=== PATIENT | female | born 1960 | race Caucasian/White ===

== ENCOUNTER 2017-06-19 22:48 | Emergency (ER) | payer OTHER ==
[2017-06-19 22:52] VITALS: BP 168/92; PULSE 61; RESP 16; TEMP 97.7; O2SAT 97
[2017-06-19] MEDS ORDERED: TDAP ADULT 0.5 ML INJ (BOOSTRIX) IM ONE (22:59)
--- NOTE | 2017-06-19 23:02 | EDPHY ---
H & P Stated Complaint: finger lac Time Seen by Provider: 06/19/17 22:59 HPI/ROS: HPI: This 57-year-old female who presents with Chief Complaint: Right index finger laceration Location: Right index and Quality: Laceration Duration: 2-3 hours prior to arrival Signs and Symptoms: + bleeding, no radiation, no numbness, no weakness, no tingling, no decreased range of motion, no swelling, + pain Timing: Acute Severity: [id number] Context: Patient is left-hand dominant, was carving pumpkins this evening and accidentally slipped and cut her right index finger. It started to bleed immediately with moderate constant pain. She applied a Band-Aid and direct pressure but bleeding continued over the next 2-3 hours. She is unsure of her last tetanus booster. Denies any paresthesias/decreased range of motion. Modifying Factors: direct pressure Comment: ROS: see HPI Constitutional: No fever, no chills, no weight loss Eyes: No blurred vision Respiratory: No shortness of breath, no cough Cardiovascular: No chest pain Gastrointestinal: No nausea, no vomiting no diarrhea Genitourinary: No dysuria Extremities: No myalgias Neurologic: No weakness, no numbness Skin: No rashes Hematologic: No bruising, no bleeding MEDICAL/SURGICAL/SOCIAL HISTORY: Medical history: Generally healthy. Does not take any regular medications. Surgical history: Denies Social history: Employed CONSTITUTIONAL: Anxious middle-aged white female, awake and alert, no obvious distress HEENT: Atraumatic and normocephalic, PERRL, EOMI. Tympanic membranes clear. Oropharynx clear, no exudate and moist pink mucosa. Airway patent. No lymphadenopathy. No meningismus. Cardiovascular: Normal S1/S2, regular rate, regular rhythm, without murmur rub or gallop. PULMONARY/CHEST: Symmetrical and nontender. Clear to auscultation bilaterally. Good air movement. No accessory muscle usage. ABDOMEN: Soft, nondistended, nontender, no rebound, no guarding, no peritoneal signs, no masses or organomegaly. No CVAT. EXTREMITIES: 2/2 pulses, strength 5/5, right index finger lateral aspect near nail fold 2 cm c-shaped laceration; DIP/PIP flexion/extension/light touch sensation intact. no deformities, no clubbing, no cyanosis or edema. NEUROLOGICAL: no focal neuro deficits. GCS 15. SKIN: Warm and dry, no erythema. no rash. Good capillary refill. Source: Patient Exam Limitations: No limitations - Personal History Current Tetanus/Diphtheria Vaccine: No Current Tetanus Diphtheria and Acellular Pertussis (TDAP): No - Medical/Surgical History Hx Asthma: No Hx Chronic Respiratory Disease: No Hx Diabetes: No Hx Cardiac Disease: No Hx Renal Disease: No Hx Cirrhosis: No Hx Alcoholism: No Hx HIV/AIDS: No Hx Splenectomy or Spleen Trauma: No - Social History Smoking Status: Never smoked Constitutional: Initial Vital Signs Temperature (C) 36.5 C 06/19/17 22:49 Heart Rate 61 06/19/17 22:49 Respiratory Rate 16 06/19/17 22:49 Blood Pressure 168/92 H 06/19/17 22:49 O2 Sat (%) 97 06/19/17 22:49 O2 Delivery Mode Room Air Allergies/Adverse Reactions: No Known Allergies Allergy (Unverified 06/19/17 22:51) Medical Decision Making Procedures: Procedure: Laceration repair. Verbal consent was obtained from the patient. The 2 cm C-shaped laceration on the tip of right index finger was anesthetized in the usual fashion digital block. The wound was irrigated, draped and explored to its base with a gloved finger. There were no deep structures involved. No tendon injury was identified. No foreign bodies were found. The wound was repaired with #5, 6-0 Prolene a simple interrupted pattern with good hemostasis. Patient tolerated procedure well. Xeroform, gauze and finger splint applied. The procedure was performed by myself. ED Course/Re-evaluation: Tetanus booster given Wound care and laceration repair provided No signs of neurovascular compromise/tenting of skin/compartment syndrome/ extremities and joints examined above and below area of concern and are neurovascularly intact. Xeroform, gauze applied Differential Diagnosis: Differential diagnosis includes but is not limited to laceration, tendon injury , nerve injury, contusion. - Data Points Medications Given: Discontinued Medications Diphtheria/Tetanus/Acell Pertussis (Boostrix) 0.5 ml IM .ONCE ONE Stop: 06/19/17 23:00 Last Admin: 06/19/17 23:13 Dose: 0.5 ml Departure - Departure Disposition: Home, Routine, Self-Care Clinical Impression: Laceration of right index finger Qualifiers: Encounter type: initial encounter Damage to nail status: without damage Foreign body presence: without foreign body Qualified Code(s): S61.210A - Laceration without foreign body of right index finger without damage to nail, initial encounter Condition: Good Instructions: Finger Laceration (ED) Additional Instructions: Keep the dressing in place for 48 hours. After 48 hours, you may remove the dressing; wash the site daily with mild soap and water; then pat dry. Take ibuprofen 600 mg every 6-8 hours with food as needed for pain and inflammation. Apply ice for 30 minutes at a time; 2-3 times per day for the next 1-2 days. Return in 7-10 days to the emergency room to have your sutures removed. Follow up with Orthopedics in 7-10 days if numbness, tingling, skin discoloration occurs. Referrals: Gómez Pires MD [Medical Doctor] - As per Instructions
== END 2017-06-19 23:42 | disposition home or self-care (01) ==
PROC: 0HQFXZZ Repair Right Hand Skin, External Approach (ICD-10-PCS; principal; 2017-06-19)
DX: S61.210A Laceration without foreign body of right index finger without damage to nail, initial encounter (principal); Z23 Encounter for immunization; W45.8XXA Other foreign body or object entering through skin, initial encounter; Y99.8 Other external cause status; Y93.89 Activity, other specified